=== PATIENT | female | born 1985 | race Caucasian/White ===

== ENCOUNTER 2017-08-05 11:18 | Outpatient (CLI) | payer OTHER ==
[2017-08-05] VITALS (8 sets, daily range): BP systolic 137–161; BP diastolic 64–100; PULSE 71–102; TEMP 98.2
[~2017-08-05] VITALS: Ht 152.4 cm; Wt 88.6 kg
[2017-08-05 12:42] LABS: COLLECTION METHOD CLEAN CATCH
[2017-08-05 12:49] LABS: BASO % 0.3 % (0.0-2.0); EOS % 0.3 % (0-4.0); GRAN # 6.7 (1.4-6.5); GRAN % 74.4 % (42.2-75.2); HEMATOCRIT 31.7 % (37.0-47.0); HEMOGLOBIN 10.9 g/dl (12.5-16.0); LYMPH # 1.7 (1.2-3.4); LYMPH % 18.5 % (20.0-51.0); MEAN CELL VOLUME 91 fl (80.0-100.0); MEAN CORPUSCULAR HEMOGLOBIN 31 pg (27.0-31.0); MEAN CORPUSCULAR HGB CONC 34 g/dl (33.0-37.0); MEAN PLATELET VOLUME 12.1 fl (7.4-10.4); MONO # 0.6 (0.1-0.6); MONO % 6.3 % (1.7-9.3); PLATELET COUNT 190 K/mm3 (130-400); RED BLOOD COUNT 3.48 M/mm3 (4.10-5.30); REDCELL DISTRIBUTION WIDTH-CV 13.2 % (11.5-14.5)
[2017-08-05 12:50] LABS: PH 6 (5-8); SQUAMOUS EPITHELIAL 0-2 /hpf; URINE APPEARANCE Clear; URINE BACTERIA Rare /hpf; URINE BILIRUBIN Negative (NEGATIVE); URINE BLOOD Negative (NEGATIVE); URINE COLOR Yellow; URINE GLUCOSE Negative (NEGATIVE); URINE KETONE Negative (NEGATIVE); URINE LEUKOCYTE ESTERASE Trace (NEGATIVE); URINE NITRATE Negative (NEGATIVE); URINE PROTEIN(semi-quant) Negative (NEGATIVE); URINE RBC 0-2 /hpf; URINE UROBILINOGEN Negative (NEGATIVE); URINE WBC 0-2 /hpf
[2017-08-05 12:56] LABS: BILIRUBIN,TOTAL 0.1 mg/dL (0.0-1.0); CALCIUM 9.1 mg/dL (8.4-10.2); CREATININE, serum 0.58 mg/dL (0.52-1.25); POTASSIUM 3.9 mmol/L (3.4-5.0)
[2017-08-05] MEDS ORDERED: ALDOMET 250MG250 MG PO (13:19)
[2017-08-05] MEDS ORDERED: PRENATAL1 TA7 PO (13:20)
== END 2017-08-05 13:30 | disposition home or self-care (01) ==
LOC: LDRO 11:18 → LDR 11:25 → LDRO 13:30
PROVIDERS: Obstetrics & Gynecology
DX: O16.3 Unspecified maternal hypertension, third trimester (principal); Z3A.37 37 weeks gestation of pregnancy
CPT/HCPCS: OP

== ENCOUNTER 2017-08-17 07:07 | Inpatient (IN) | payer OTHER ==
[~2017-08-17] VITALS: Ht 152.4 cm; Wt 88.6 kg
[2017-08-17] VITALS (61 sets, daily range): BP systolic 118–197; BP diastolic 53–111; PULSE 58–117; TEMP 97.8–98.7
[~2017-08-17 07:07] MED LIST: ALDOMET 250MG250 MG PO; PRENATAL1 TA7 PO
[2017-08-17] MEDS ORDERED: TRANDATE300 MG PO (07:41)
[2017-08-17 08:42] LABS: BASO % 0.3 % (0.0-2.0); EOS # 0.1 (0.0-0.7); EOS % 1.2 % (0-4.0); GRAN # 6.3 (1.4-6.5); GRAN % 68.8 % (42.2-75.2); LYMPH # 2.1 (1.2-3.4); LYMPH % 22.6 % (20.0-51.0); MEAN CELL VOLUME 91 fl (80.0-100.0); MEAN CORPUSCULAR HGB CONC 35 g/dl (33.0-37.0); MEAN PLATELET VOLUME 12.2 fl (7.4-10.4); MONO # 0.6 (0.1-0.6); MONO % 6.9 % (1.7-9.3); PLATELET COUNT 213 K/mm3 (130-400); RED BLOOD COUNT 3.52 M/mm3 (4.10-5.30)
[2017-08-17 08:44] LABS: HEMATOCRIT 31.9 % (37.0-47.0); HEMOGLOBIN 11.1 g/dl (12.5-16.0); MEAN CORPUSCULAR HEMOGLOBIN 32 pg (27.0-31.0)
[2017-08-17 09:29] LABS: ALBUMIN 3.5 gm/dL (3.5-5.0); BILIRUBIN,TOTAL 0.3 mg/dL (0.0-1.0); CALCIUM 9.1 mg/dL (8.4-10.2); CREATININE, serum 0.66 mg/dL (0.52-1.25); POTASSIUM 3.9 mmol/L (3.4-5.0); TOTAL PROTEIN 6.6 gm/dL (6.4-8.2)
[2017-08-18] VITALS (7 sets, daily range): BP systolic 127–150; BP diastolic 59–79; PULSE 80–96; TEMP 97.6–98.5
[2017-08-18 07:05] LABS: BASO # 0.1 (0.0-0.2); BASO % 0.4 % (0.0-2.0); EOS # 0.1 (0.0-0.7); EOS % 0.3 % (0-4.0); GRAN % 84.3 % (42.2-75.2); LYMPH # 1.7 (1.2-3.4); LYMPH % 9.7 % (20.0-51.0); MEAN CELL VOLUME 91 fl (80.0-100.0); MEAN CORPUSCULAR HGB CONC 35 g/dl (33.0-37.0); MEAN PLATELET VOLUME 12.2 fl (7.4-10.4); MONO # 0.9 (0.1-0.6); MONO % 4.9 % (1.7-9.3); PLATELET COUNT 199 K/mm3 (130-400); RED BLOOD COUNT 3.24 M/mm3 (4.10-5.30); REDCELL DISTRIBUTION WIDTH-CV 12.8 % (11.5-14.5)
[2017-08-18 07:06] LABS: HEMATOCRIT 29.6 % (37.0-47.0); HEMOGLOBIN 10.2 g/dl (12.5-16.0); MEAN CORPUSCULAR HEMOGLOBIN 31 pg (27.0-31.0)
[2017-08-19 03:30] VITALS: BP 155/73; PULSE 80
[2017-08-19 06:54] VITALS: BP 126/64; PULSE 73; TEMP 97.8
[2017-08-19] MEDS ORDERED: PROCARDIA XL 6060 MG PO (08:50)
[2017-08-19] MEDS ORDERED: PERCOCET 325 MG1 TA2 PO (08:51)
[2017-08-19] MEDS ORDERED: IBU600 MG PO (08:51)
== END 2017-08-19 15:25 | disposition home or self-care (01) | DRG 774 ==
LOC: OB 07:07 → LDR 07:07 → OB 23:50
PROVIDERS: Obstetrics & Gynecology
PROC: 10E0XZZ Delivery of Products of Conception, External Approach (ICD-10-PCS; principal; 2017-08-17)
PROC: 3E033VJ Introduction of Other Hormone into Peripheral Vein, Percutaneous Approach (ICD-10-PCS; 2017-08-17)
DX: O11.4 Pre-existing hypertension with pre-eclampsia, complicating childbirth (principal); O10.92 Unspecified pre-existing hypertension complicating childbirth; O69.81X0 Labor and delivery complicated by cord around neck, without compression, not applicable or unspecified; Z3A.38 38 weeks gestation of pregnancy; Z37.0 Single live birth
CPT/HCPCS: J0360; J2590; J7120

== ENCOUNTER → 2017-10-14 | Outpatient (CLI) | payer OTHER ==
[~2017-10-14] MED LIST changes: +IBU600 MG PO; +PERCOCET 325 MG1 TA2 PO; +PROCARDIA XL 6060 MG PO; +TRANDATE300 MG PO
[2017-10-14 13:28] LABS: BASO % 0.4 % (0.0-2.0); EOS % 0.5 % (0-4.0); GRAN # 6.8 (1.4-6.5); GRAN % 85.7 % (42.2-75.2); HEMOGLOBIN 11.7 g/dl (12.5-16.0); LYMPH # 0.7 (1.2-3.4); LYMPH % 8.3 % (20.0-51.0); MEAN CELL VOLUME 91 fl (80.0-100.0); MEAN CORPUSCULAR HEMOGLOBIN 30 pg (27.0-31.0); MEAN CORPUSCULAR HGB CONC 34 g/dl (33.0-37.0); MEAN PLATELET VOLUME 11.1 fl (7.4-10.4); MONO # 0.4 (0.1-0.6); MONO % 4.8 % (1.7-9.3); PLATELET COUNT 214 K/mm3 (130-400); RED BLOOD COUNT 3.85 M/mm3 (4.10-5.30); REDCELL DISTRIBUTION WIDTH-CV 12.5 % (11.5-14.5)
[2017-10-14 13:31] LABS: HEMATOCRIT 34.9 % (37.0-47.0)
[2017-10-14 13:38] LABS: BILIRUBIN,TOTAL 0.7 mg/dL (0.0-1.0); CALCIUM 9.6 mg/dL (8.4-10.2); CREATININE, serum 0.74 mg/dL (0.52-1.25); POTASSIUM 3.8 mmol/L (3.4-5.0); TOTAL PROTEIN 7.6 gm/dL (6.4-8.2)
== END ==
LOC: COL.LAB 13:06
PROVIDERS: Physician Assistant
DX: R50.9 Fever, unspecified (principal); R19.7 Diarrhea, unspecified; R10.9 Unspecified abdominal pain